=== PATIENT | female | born 1985 | race Caucasian/White ===

== ENCOUNTER 2017-01-15 11:08 | Day surgery (SDC) | payer OTHER ==
[2017-01-07 11:48] VITALS: BMI 21.2
[2017-01-15] MEDS ORDERED: PROPOFOL 20 ML ONE ×2 (12:05)
[2017-01-15 13:00] VITALS: TEMP 97.6
[2017-01-15 13:49] VITALS: BP 121/73; PULSE 66
--- NOTE | 2017-01-18 11:34 | PATH ---
Surgical Pathology Report Patient Name: DANIEL SARGENT [facility]. Rec. #: [id number] /Age/Gender: 1985 (Age: 31) / F Account: [id number] Location: [facility]-ENDOSCOPY Taken: 01/15/2017 Received: 01/15/2017 Reported: 01/18/2017 Physicians: Naveen Angel M.D. Specimen(s) Received A: BX 2ND PORTION OF DUODENUM AND BULB B: BX ANTRUM Clinical History Abdominal pain, nausea, vomiting, altered bowel habit Hiatal hernia Final Diagnosis A. DUODENUM, SECOND PORTION AND BULB, BIOPSY: DUODENAL MUCOSA WITH MILD CHRONIC INFLAMMATION AND FOCAL CANDICE'S GLANDS HYPERPLASIA. NO HISTOLOGIC EVIDENCE OF GLUTEN SENSITIVE ENTEROPATHY (CELIAC DISEASE). B. STOMACH, ANTRUM, BIOPSY: GASTRIC ANTRAL MUCOSA WITH PATCHY MILD CHRONIC GASTRITIS. IMMUNOSTAIN FOR H. PYLORI IS NEGATIVE FOR ORGANISMS. Electronically Signed Owen Law M.D. Gross Description A. Received in formalin, labeled "biopsy second portion duodenum and bulb" are 4 fisher, irregular portions of soft tissue measuring 0.2-0.3 cm in greatest dimension. The specimens are submitted in toto in one cassette. B. Received in formalin, labeled "biopsy antrum" are 2 fisher, irregular portions of soft tissue measuring 0.2-0.3 cm in greatest dimension. The specimens are submitted in toto in one cassette. [facility]/01/15/2017 [facility]/01/15/2017
== END 2017-01-15 13:48 | disposition home or self-care (01) ==
LOC: JASU-ENDO 11:08
PROVIDERS: ATTEND Internal Medicine Gastroenterology
PROC: 0DB68ZX Excision of Stomach, Via Natural or Artificial Opening Endoscopic, Diagnostic (ICD-10-PCS; 2017-01-15)
PROC: 0DB98ZX Excision of Duodenum, Via Natural or Artificial Opening Endoscopic, Diagnostic (ICD-10-PCS; principal; 2017-01-15 12:00)
DX: K44.9 Diaphragmatic hernia without obstruction or gangrene (principal); R10.13 Epigastric pain; R11.10 Vomiting, unspecified; R68.81 Early satiety
CPT/HCPCS: 84703; 88305-TC; 88342-TC